=== PATIENT | female | born 1990 | race African-American/Black ===

== ENCOUNTER 2017-09-25 09:50 | Inpatient (IN) | payer OTHER ==
[2017-09-25] MEDS ORDERED: AMPICILLIN - 2 GM in SODIUM CHLORIDE 100 ML IVPB ONE (10:00)
[2017-09-25] MEDS ORDERED: CITRIC ACID/SODIUM CITRATE 30 ML UNIT-DOSE CUP PO ONE (10:54)
[2017-09-25 11:00] VITALS: BMI 29.2
[2017-09-25] MEDS ORDERED: ELECTROLYTE-148 SOLN 1,000 ML IV SCH (11:00)
--- NOTE | 2017-09-25 11:03 | HP ---
Past Medical History - Primary Care Physician PCP:: Johnson Wagoner - Admission Chief Complaint: 37 weeks, PROM, labor, previous c/s History of Present Illness: 27 yo f g 3 p2002 with 2 previous c/s ,37 weeks, c/o ROM since 730 am today has pain and contraction, clear fluid, cx 1 cm 80 vx 0. fhr cat 1 History Source: Patient Limitations to Obtaining History: No Limitations - Past Medical History ...: 3 ...Para: 2 ... Weeks Gestation by Dates: 37 - Past Surgical History Past Surgical History: Yes: Hx Myomectomy: No Hx Transabdominal Cerclage: No - Smoking History Smoking history: Never smoked - Alcohol/Substance Use Hx Alcohol Use: No - Social History Usual Living Arrangement: Yes: With Spouse History of Recent Travel: No Home Medications - Allergies Allergies/Adverse Reactions: Allergies Allergy/AdvReac Type Severity Reaction Status Date / Time No Known Allergies Allergy Verified 09/25/17 10:30 - Home Medications Home Medications: Ambulatory Orders Vit No.130/Iron/Folic [ Vitamins] 1 each PO DAILY 09/23/17 Review of Systems - Review of Systems Constitutional: reports: No Symptoms Eyes: reports: No Symptoms HENT: reports: No Symptoms Neck: reports: No Symptoms Cardiovascular: reports: No Symptoms Respiratory: reports: No Symptoms Gastrointestinal: reports: No Symptoms Genitourinary: reports: No Symptoms Breasts: reports: No Symptoms Reported Musculoskeletal: reports: No Symptoms Integumentary: reports: No Symptoms Neurological: reports: No Symptoms Endocrine: reports: No Symptoms Hematology/Lymphatic: reports: No Symptoms Psychiatric: reports: No Symptoms Physical Exam - Maternity Constitutional: Yes: Well Nourished, No Distress, Calm Eyes: Yes: WNL, Conjunctiva Clear, EOM Intact HENT: Yes: WNL, Atraumatic, Normocephalic Neck: Yes: WNL, Supple, Trachea Midline Cardiovascular: Yes: WNL, Regular Rate and Rhythm Breast(s): Yes: WNL - Abdominal Exam/OB Fundal Height: 38 Number of Fetuses: Single Presentation: Vertex Contractions: Yes Regularity: Irregular Intensity: Mod/Strong Monitor Mode: External Heart Rate Location: [facility] Category: I Decelerations: None - Vaginal Exam/OB Vaginal Bleediing: No Speculum Exam: No Dilatation (cm): 1 cm Effacement (%): 80 Amniotic Membrane Status: Ruptured Nitrazine Test: Positive Amniotic Fluid: Yes: Clear Station: 0 - Physical Exam Musculoskeletal: Yes: WNL Extremities: Yes: WNL Edema: LLE: Trace, RLE: Trace Deep Tendon Reflex Grade: Normal +2 Hemorrhage Risk Assessment - Risk Factors Risk Score: 2 Risk Level: High Risk Problem List - Problems (1) with 37 weeks completed gestation Code(s): Z3A.37 - 37 WEEKS GESTATION OF (2) Premature labor with rupture of membranes Code(s): O42.90 - YAKOV ROM, 7TH0 BETW RUPT & ONST LABR, UNSP WEEKS OF GEST (3) Previous section complicating Code(s): O34.219 - MATERNAL CARE FOR UNSP TYPE SCAR FROM PREVIOUS DEL Assessment/Plan repeat c/s, rba discussed
[2017-09-25 11:32] LABS: BASO % 0.3 % (0-2.0); EOS % 0.5 % (0-4.5); HEMATOCRIT 36.1 % (32.4-45.2); HEMOGLOBIN 12.1 GM/dL (10.7-15.3); LYMPH % 28.1 % (8-40); MCH 26.6 pg (25.7-33.7); MCHC 33.5 g/dl (32.0-36.0); MEAN CELL VOLUME 79.3 fl (80-96); MEAN PLT VOLUME 10.4 fl (7.5-11.1); MONO % 9.6 % (3.8-10.2); NEUT % 61.5 % (42.8-82.8); PLATELET COUNT 146 K/MM3 (134-434); RBC 4.55 M/mm3 (3.60-5.2); RDW 14.1 % (11.6-15.6); WHITE BLOOD COUNT 5.1 K/mm3 (4.0-10.0)
[2017-09-25 11:49] LABS: ANION GAP 8 (8-16); BLOOD UREA NITROGEN 6 mg/dL (7-18); CALCIUM 8.1 mg/dL (8.5-10.1); CHLORIDE 109 mmol/L (98-107); CO2 25 mmol/L (21-32); CREATININE 0.6 mg/dL (0.55-1.02); GLUCOSE,RANDOM 87 mg/dL (74-106); POTASSIUM 3.8 mmol/L (3.5-5.1); SODIUM 142 mmol/L (136-145)
[2017-09-25 11:53] LABS: INR 0.93 (0.82-1.09); PROTHROMBIN TIME (PATIENT) 10.5 SEC (9.7-13.0)
[2017-09-25 11:55] LABS: ACTIVATED PTT 28.1 SECONDS (25.2-36.5)
[2017-09-25] MEDS ORDERED: BENZOCAINE 28 GM HEMORRHOIDAL OINTMENT PR PRN (12:42)
[2017-09-25] MEDS ORDERED: diphenhydrAMINE HCL 25 MG CAPSULE (FP) PO PRN (12:42)
[2017-09-25] MEDS ORDERED: BENZOCAINE 20% 57 GM BOTTLE TP PRN (12:42)
[2017-09-25] MEDS ORDERED: METHYLERGONOVINE MALEATE 0.2 MG/1 ML AMP IM PRN (12:42)
[2017-09-25] MEDS ORDERED: oxyCODONE HCL 5 MG TABLET PO PRN (12:42)
[2017-09-25] MEDS ORDERED: WITCH HAZEL 50% (TUCKS) 40 PAD/JAR PAD TP PRN (12:42)
[2017-09-25] MEDS ORDERED: morphine SULFATE/Preservative Free 0.5 MG/ML (1cc Syringe) ONE (12:43)
[2017-09-25] MEDS ORDERED: BUPIVACAINE 0.75% IN DEXTROSE/PF 2ML AMPULE NR ONE (12:43)
[2017-09-25] MEDS ORDERED: OXYTOCIN 20 UNITS in 0.9% NS 20 UNIT/1,000 ML INFUS.BAG IV SCH (12:45)
[2017-09-25] MEDS ORDERED: IBUPROFEN 600 MG TABLET (FP) PO PRN (12:58)
[2017-09-25] MEDS ORDERED: ONDANSETRON 4 MG/2 ML VIAL IVPUSH PRN (12:58)
[2017-09-25] MEDS ORDERED: OXYTOCIN 10 UNITS/ML VIAL ONE ×2 (13:01)
[2017-09-25] MEDS: IBUPROFEN 800 MG/8 ML IJ IVPB PRN ×2 (14:00→21:29)
[2017-09-25] MEDS ORDERED: AMPICILLIN - 1 GM in SODIUM CHLORIDE 100 ML IVPB SCH (14:00)
[2017-09-25] MEDS ORDERED: IBUPROFEN 800 MG/8 ML IJ IVPB ONE (14:03)
[2017-09-25] MEDS: CEFAZOLIN 1 GM in DEXTROSE 5%-WATER - 50 ML IVPB SCH (18:29)
[2017-09-25] MEDS ORDERED: DEXTROSE 5%-LACTATED RINGERS 1,000 ML IV SCH (20:45)
[2017-09-26] MEDS: CEFAZOLIN 1 GM in DEXTROSE 5%-WATER - 50 ML IVPB SCH (01:56)
[2017-09-26] MEDS: ACETAMINOPHEN 325 MG TABLET (FP) PO PRN ×2 (03:29→08:26)
[2017-09-26] MEDS: IBUPROFEN 600 MG TABLET (FP) PO PRN ×5 (03:29→21:34)
[2017-09-26 07:23] LABS: BASO % 0.3 % (0-2.0); EOS % 1.4 % (0-4.5); HEMATOCRIT 34.7 % (32.4-45.2); HEMOGLOBIN 11.7 GM/dL (10.7-15.3); MCH 26.9 pg (25.7-33.7); MCHC 33.8 g/dl (32.0-36.0); MEAN CELL VOLUME 79.5 fl (80-96); MEAN PLT VOLUME 10.5 fl (7.5-11.1); MONO % 8.2 % (3.8-10.2); NEUT % 67.1 % (42.8-82.8); PLATELET COUNT 129 K/MM3 (134-434); RBC 4.37 M/mm3 (3.60-5.2); RDW 14.1 % (11.6-15.6); WHITE BLOOD COUNT 6.5 K/mm3 (4.0-10.0)
--- NOTE | 2017-09-26 07:24 | OP ---
DATE OF OPERATION: 09/25/2017 PREOPERATIVE DIAGNOSIS: at 37 weeks, premature rupture of membrane, labor, 2 previous sections, requests a repeat section. POSTOPERATIVE DIAGNOSIS: at 37 weeks, premature rupture of membrane, labor, 2 previous sections, requests a repeat section. PROCEDURE: Repeat low-segment transverse section. SURGEON: Steffen Valle MD WATER WELL DRILLER: NHI Chavez ANESTHESIA: Spinal anesthesia, Deni Ramires MD ESTIMATED BLOOD LOSS: 500 mL. DESCRIPTION OF PROCEDURE: The patient was taken to the operating room, had adequate spinal anesthesia. Abdomen and perineum were prepped and draped. Pfannenstiel abdominal skin incision was made over the previous incision. Abdominal wall was cut layer by layer until peritoneum was exposed and incised. Upon entering the abdominal cavity, the lower uterine segment was identified and ureterovesical fold of peritoneum established. Bladder was pushed down. Then, with the lower blade of the Sherwood retractor in the pelvis, a low transverse uterine incision was made, incision extended laterally. Amniotic sac was entered, clear fluid, head delivered from occiput posterior position. Nasopharynx was suctioned and live baby girl was delivered, 9, 9. Placenta was delivered manually. Uterine cavity was cleaned of all remaining tissue. Uterine incision was closed in 2 layers, first layer with 0 Biosyn continuous suture, the second layer with 0 Biosyn imbricating the first layer. Bladder flap was closed with 0 Vicryl continuous suture. Both tubes and ovaries were checked and normal. No active bleeding was seen. All the lap pads, sponge, and instrument counts were correct. Then peritoneum was closed with 0 Biosyn continuous suture. Muscles were brought together with interrupted sutures of 0 Biosyn. Fascia was closed with 0 Biosyn continuous suture, the subcutaneous fat interrupted suture of 0 Biosyn, and the skin was closed with onesimo. Patient tolerated the procedure well, left the OR in good condition. STEFFEN VALLE M.D. [id number]
[2017-09-26] MEDS: SIMETHICONE 80 MG TAB.CHEW (FP) PO PRN ×4 (08:28→21:33)
--- NOTE | 2017-09-26 11:45 | PN ---
Progress Note (short form) - Note Progress Note: POD #1 - s/p repeat under spinal anesthesia with duramorph. VSS. Pt. doing well, resting comfortably in bed. No complaints. Good pain control. No apparent anesthetic complications noted. Continue current care.
[2017-09-26] MEDS: ENOXAPARIN NA (PORCINE) 40 MG/0.4 ML DISP.SYRIN SQ SCH (12:00)
[2017-09-26] MEDS: oxyCODONE HCL 5 MG TABLET PO PRN ×3 (12:18→21:33)
[2017-09-26] MEDS ORDERED: BISACODYL 10 MG SUPP.RECT RC PRN (12:42)
--- NOTE | 2017-09-26 15:05 | PN ---
Post Progress Note - Subjective Subjective: 27 yo Para 3, status post repeat , seen and evaluated. She's out of bed to chair. Doing well. Post Day: 1 Type of Delivery: Repeat C/S Vital Signs: Vital Signs Temperature 98.0 F 09/26/17 06:00 Pulse Rate 60 09/26/17 06:00 Respiratory Rate 20 09/26/17 06:00 Blood Pressure 115/69 09/26/17 06:00 O2 Sat by Pulse Oximetry (%) 99 09/25/17 13:45 Breast Exam: Yes: Soft Uterus: Yes: Fundus Firm Incision: Yes: Dressing dry and intact Abdomen/GI: Yes: Abdomen soft, Tolerating PO Lochia: Yes: Rubra Lochia, amount: Small Extremities: Yes: Calves non-tender Perineum: Yes: Intact Activity: Ambulating - Labs Labs: CBC WBC 6.5 K/mm3 (4.0-10.0) 09/26/17 06:30 RBC 4.37 M/mm3 (3.60-5.2) 09/26/17 06:30 Hgb 11.7 GM/dL (10.7-15.3) 09/26/17 06:30 Hct 34.7 % (32.4-45.2) 09/26/17 06:30 MCV 79.5 fl (80-96) L 09/26/17 06:30 MCH 26.9 pg (25.7-33.7) 09/26/17 06:30 MCHC 33.8 g/dl (32.0-36.0) 09/26/17 06:30 RDW 14.1 % (11.6-15.6) 09/26/17 06:30 Plt Count 129 K/MM3 (134-434) L 09/26/17 06:30 MPV 10.5 fl (7.5-11.1) 09/26/17 06:30 Absolute Neuts (auto) 4.4 # 09/26/17 06:30 Neutrophils % 67.1 % (42.8-82.8) 09/26/17 06:30 Lymphocytes % 23.0 % (8-40) 09/26/17 06:30 Monocytes % 8.2 % (3.8-10.2) 09/26/17 06:30 Eosinophils % 1.4 % (0-4.5) D 09/26/17 06:30 Basophils % 0.3 % (0-2.0) 09/26/17 06:30 Nucleated RBC % 0 % (0-0) 09/26/17 06:30 Assessment/Plan Status post repeat Stable Ambulation Analgesia as needed Continue routine post op care
[2017-09-27] MEDS: IBUPROFEN 600 MG TABLET (FP) PO PRN ×4 (02:56→21:31)
[2017-09-27] MEDS: SIMETHICONE 80 MG TAB.CHEW (FP) PO PRN ×4 (02:56→21:31)
--- NOTE | 2017-09-27 07:34 | PN ---
Progress Note (short form) - Note Progress Note: pod 2 doing well, passing gas , ambulating CBC, BMP 09/26/17 06:30 09/25/17 11:00 abdomen soft, no distension, no cva incision dry, clean no calf tenderness plan ambulate , cbc in am Problem List - Problems (1) with 37 weeks completed gestation Code(s): Z3A.37 - 37 WEEKS GESTATION OF (2) Premature labor with rupture of membranes Code(s): O42.90 - YAKOV ROM, 7TH0 BETW RUPT & ONST LABR, UNSP WEEKS OF GEST (3) Previous section complicating Code(s): O34.219 - MATERNAL CARE FOR UNSP TYPE SCAR FROM PREVIOUS DEL
[2017-09-27] MEDS: ENOXAPARIN NA (PORCINE) 40 MG/0.4 ML DISP.SYRIN SQ SCH (09:30)
[2017-09-27] MEDS: oxyCODONE HCL 5 MG TABLET PO PRN ×3 (10:22→21:31)
[2017-09-27] MEDS ORDERED: SENNOSIDES/DOCUSATE COMBO (SENNA PLUS) TABLET (UD) PO PRN (22:00)
[2017-09-28] MEDS: SIMETHICONE 80 MG TAB.CHEW (FP) PO PRN (04:11)
[2017-09-28] MEDS: ACETAMINOPHEN 325 MG TABLET (FP) PO PRN (04:11)
[2017-09-28] MEDS: IBUPROFEN 600 MG TABLET (FP) PO PRN (04:11)
[2017-09-28] MEDS: oxyCODONE HCL 5 MG TABLET PO PRN (04:11)
[2017-09-28 07:03] LABS: BASO % 0.6 % (0-2.0); EOS % 1.1 % (0-4.5); LYMPH % 18.5 % (8-40); MCH 26.7 pg (25.7-33.7); MCHC 33.3 g/dl (32.0-36.0); MONO % 8.2 % (3.8-10.2); NEUT % 71.6 % (42.8-82.8); PLATELET COUNT 150 K/MM3 (134-434); RDW 14.3 % (11.6-15.6); WHITE BLOOD COUNT 5.4 K/mm3 (4.0-10.0)
--- NOTE | 2017-09-28 08:15 | DS ---
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 Vital Signs: Vital Signs Temperature 98.4 F 09/27/17 21:34 Pulse Rate 70 09/27/17 21:34 Respiratory Rate 20 09/27/17 21:34 Blood Pressure 128/80 09/27/17 21:34 O2 Sat by Pulse Oximetry (%) 99 09/25/17 13:45 Constitutional: Yes: Well Nourished, No Distress, Calm Eyes: Yes: WNL, Conjunctiva Clear, EOM Intact HENT: Yes: WNL, Atraumatic, Normocephalic Neck: Yes: WNL, Supple, Trachea Midline Cardiovascular: Yes: WNL, Regular Rate and Rhythm Respiratory: Yes: WNL, Regular, CTA Bilaterally Gastrointestinal: Yes: WNL ...Rectal Exam: Yes: WNL Renal/: Yes: WNL Breast(s): Yes: WNL Musculoskeletal: Yes: WNL Extremities: Yes: WNL Integumentary: Yes: WNL Wound/Incision: Yes: Clean/Dry, Well Approximated, [place] Intact Neurological: Yes: WNL, Alert, Oriented ...Motor Strength: WNL Psychiatric: Yes: WNL, Alert, Oriented Labs: CBC, BMP 09/28/17 06:30 09/25/17 11:00 Delivery - Delivery Section: Repeat, Low Flap Transverse (no complication) Type of Anesthesia: Spinal EBL (cc): 500 Delivery, Single - Stages of Labor Date of Delivery: 09/25/17 Time of Delivery: 13:00 Time Placenta Delivered: 13:01 Placenta: Yes: Spontaneous - 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 Present: Yes Name: Ana Jacobo Infant Gender: Female Weight: 5 lb 7 oz Position: Right, OP Total Hours ROM (Hrs/Mins): 5h1m - 1 Minute Total Score: 9 5 Minutes Total Score: 9 - [place] Feeding Plan Initial Plan: Elected not to breastfeed exclusively throughout hospitalization Discharge Summary Reason For Visit: Current Active Problems with 37 weeks completed gestation (Acute) Premature labor with rupture of membranes (Acute) Previous section complicating (Acute) Procedures: Principal: repeat LST c/s Hospital Course: no complication Condition: Good - Instructions Diet, Activity, Other Instructions: regular diet . no intercourse , follow up clinic 1 week Referrals: Johnson Wagoner MD [Staff Physician] - Disposition: HOME - Home Medications Comprehensive Discharge Medication List: Ambulatory Orders Vit No.130/Iron/Folic [ Vitamins] 1 each PO DAILY 09/23/17 Ibuprofen [Motrin -] 600 mg PO TID #21 tablet 09/27/17
[2017-09-28] MEDS: ENOXAPARIN NA (PORCINE) 40 MG/0.4 ML DISP.SYRIN SQ SCH ×2 (08:56→09:21)
[2017-09-28 09:57] VITALS: BP 119/78; PULSE 66; TEMP 98.6
--- NOTE | 2017-10-01 15:46 | PATH ---
Surgical Pathology Report Patient Name: RASHARD OBANDO [facility]. Rec. 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 Specimen(s) Received PLACENTA Clinical History Previous x 2 in labor Final Diagnosis PLACENTA, SECTION: 417 g THIRD TRIMESTER PLACENTA WITH TRIVASCULAR UMBILICAL CORD AND UNREMARKABLE PLACENTAL MEMBRANES. Electronically Signed Brigitte Tomas M.D. Gross Description The specimen is received fresh labeled placenta and is a 417 gram, 15.5 x 14.0 x 2.2 cm. placenta with attached membranes and umbilical cord. The attached membranes are gama, translucent with focal opacities and insert marginally. The umbilical cord measures 33 cm. in length and averages 1 cm. in diameter. The cord inserts eccentrically, 2.5 cm. to the nearest margin. No true knots or strictures are identified. Cut surface of the umbilical cord reveals 3 vessels. The surface is vila-blue with minimal fibrin deposition and appropriate caliber vessels. The maternal surface is red-brown with focal defects. Sectioning reveals red-brown, spongy parenchyma. No lesions are identified. Roll Clamp Operator sections are submitted in three cassettes as follows: 1- membrane rolls and umbilical cord; 2-3- full thickness sections of placenta. /09/30/2017 saudi/09/30/2017
== END 2017-09-28 10:10 | disposition home or self-care (01) | DRG 540 ==
LOC: JLDR 09:50 → J3W 15:13
PROVIDERS: ADMIT Obstetrics & Gynecology; ATTEND Obstetrics & Gynecology
PROC: 10D00Z1 Extraction of Products of Conception, Low, Open Approach (ICD-10-PCS; principal; 2017-09-25)
DX: O34.211 Maternal care for low transverse scar from previous cesarean delivery (principal); O42.92 Full-term premature rupture of membranes, unspecified as to length of time between rupture and onset of labor; Z3A.37 37 weeks gestation of pregnancy; Z37.0 Single live birth
CPT/HCPCS: 36415; 80048; 85025; 85610; 85730; 86593; 86850; 86900; 86901